=== PATIENT | female | born 1940 | race Caucasian/White ===

== ENCOUNTER → 2020-10-29 | Outpatient (CLI) | payer OTHER ==
[~2020-10-29] MED LIST: ALEN70 PO; AMLO5 PO; ANAS1 PO; ASPI81CH PO; Anastrozole1 GM; Aspir 8181 MG PO; GLUCOSAMINE &1 EACH PO; HYDCHL25 PO; L-Lysine500 M1 PO; LISI20 PO; MAGOXI400 PO; METF500 PO; Metformin HCl500 MG PO; NATURAL LUTEIN20 MG PO; PRAV20 PO; Pravastatin Sod40 MG PO; TUMERSAID TABL1 EACH PO; VITAMIN B122500 MCG PO; VITAMIN C500 M1 PO; Vitamin D2000 UNIT PO
== END | disposition home or self-care (01) ==
LOC: PLD 08:06 → LAB SHORT 08:06
DX: C44.622 Squamous cell carcinoma of skin of right upper limb, including shoulder (principal)
CPT/HCPCS: 88305

== ENCOUNTER → 2020-11-14 | Outpatient (CLI) | payer OTHER | LOC: PLD 11:27 → LAB SHORT 11:27 | DX: C44.622 Squamous cell carcinoma of skin of right upper limb, including shoulder (principal) | CPT/HCPCS: 88305 ==

== ENCOUNTER 2021-11-25 09:23 | Day surgery (SDC) | payer OTHER ==
[~2021-11-25 09:23] MED LIST changes: +C COMPLEX1000 M1 PO; +Calcium Acetat667 MG PO; +GLUCOSAMINE & CHONDR PO; -GLUCOSAMINE &1 EACH PO; +PROBIOTIC1 EA13 PO; -VITAMIN C500 M1 PO
--- NOTE | 2021-11-25 11:14 | NUR ---
Surgical site prepped with 2% Chlorhexidine cloth wipe. History, Chart, Medications and Allergies reviewed before start of procedure. Lungs clear T/O to Auscultation. Patient confirms NPO status and agrees with scheduled surgery. Patient reports completing Chlorhexadine shower X2 prior to admission to hospital. Patient up to Ambulate independently. Gait steady.
--- NOTE | 2021-11-25 19:19 | NUR ---
SHIFT SUMMARY PT ARRIVED TO UNIT SHORTLY AFTER 1500. SPINAL WORE OFF ENOUGH FOR PT TO WORK w/ THERAPY. EATING & DRINKING WELL.
--- NOTE | 2021-11-26 03:19 | NUR ---
SHIFT SUMMARY A/O X4. VSS. POD1- L TKA, ROSEMARY WRAP AND AQUACEL IN PLACE C/D/I. AMBULATING WITH FWW AND GB WITH SBA. VOIDING. TOLERATING PO INTAKE. MANAGEABLE PAIN LEVEL, TREATED PER EMAR. WILL CONTINUE TO MONITOR AND REPORT TO ONCOMING RN.
[2021-11-26 04:28] LABS: BASOPHILS PERCENT AUTO 0 % (0-2); EOSINOPHILS PERCENT AUTO 0 % (0-6); Hematocrit 29.6 % (33.0-51.0); Hemoglobin 9.9 g/dL (11.5-16.0); IMMATURE GRAN ABSOLUTE AUTO 0.05 K/mm3 (0.00-0.10); IMMATURE GRAN PERCENT AUTO 1 % (0-1); LYMPHOCYTES ABSOLUTE AUTO 0.82 K/mm3 (0.84-5.20); LYMPHOCYTES PERCENT AUTO 9 % (21-46); MONOCYTES ABSOLUTE AUTO 0.38 K/mm3 (0.16-1.47); MONOCYTES PERCENT AUTO 4 % (4-13); Mean Corpuscular HGB 29.4 pg (26.0-34.0); Mean Corpuscular HGB Conc 33.4 g/dL (31.5-36.5); Mean Corpuscular Volume 88 fL (80-100); Mean Platelet Volume 10.4 fL (9.1-12.4); NEUTROPHILS ABSOLUTE AUTO 7.69 K/mm3 (1.96-9.15); NEUTROPHILS PERCENT AUTO 86 % (41-73); Platelet Count 219 K/mm3 (150-400); RDW Coefficient Variation 12.5 % (11.7-14.2); Red Blood Cell Count 3.37 M/mm3 (3.80-5.20); White Blood Cell Count 8.94 K/mm3 (4.00-11.30)
[2021-11-26 04:44] LABS: Anion Gap 10 mmol/L (6-16); Blood Urea Nitrogen 31 mg/dL (8-24); Bun/Creatinine Ratio 42.5 (12.0-20.0); CO2, Blood 22 mmol/L (21-32); Calcium, Blood 8.8 mg/dL (8.5-10.1); Chloride, Blood 101 mmol/L (98-108); Creatinine, Blood 0.73 mg/dL (0.40-1.00); Glomerular Filtration Rate >60 (60-); Glucose, Blood 193 mg/dL (70-99); Potassium, Blood 4.4 mmol/L (3.5-5.5); Sodium, Blood 133 mmol/L (136-145)
[2021-11-26] MEDS ORDERED: Percocet 5-3251 EACH PO (11:30)
--- NOTE | 2021-11-26 12:03 | NUR ---
DISCHARGE PT HAS CLEARED THERAPY. PAIN WELL CONTROLLED. EATING, DRINKING, & VOIDING WELL. BUT DID HAVE ONE BOUT OF LARGE EMESIS. PT STATES THIS HAPPENS SOMETIMES & ISN'T CONCERNED. KIARRA CALLED IN TO [facility]. NICKY, SCRIPT, & POLAR PACK SENT w/ PT. ESCORTED OUT VIA W/C.
== END 2021-11-26 11:50 | disposition home or self-care (01) ==
LOC: ORSCMMR 09:23 → SURS 09:23 → ORSCMMR 09:24 → ORD 11:00 → ORSCMMR 11:00 → SURS 14:30 → ORSCMMR 11-26 11:50
PROVIDERS: Orthopaedic Surgery
PROC: 0SRD0JA Replacement of Left Knee Joint with Synthetic Substitute, Uncemented, Open Approach (ICD-10-PCS; principal; 2021-11-25 11:00)
PROC: 8E0Y0CZ Robotic Assisted Procedure of Lower Extremity, Open Approach (ICD-10-PCS; principal; 2021-11-25 11:00)
DX: M17.12 Unilateral primary osteoarthritis, left knee (principal); I10 Essential (primary) hypertension; E11.9 Type 2 diabetes mellitus without complications; Z79.84 Long term (current) use of oral hypoglycemic drugs; Z79.899 Other long term (current) drug therapy; Z79.82 Long term (current) use of aspirin; Z85.3 Personal history of malignant neoplasm of breast
CPT/HCPCS: 27447; S2900; 36415; 73560-LT; 80048; 82947; 85025; 97110; 97116; 97161; 97530; A9270; C1776; J0171; J0690; J0735; J1100; J1815; J1885; J2250; J2704; J2795; J3010; J7120

== ENCOUNTER → 2022-05-27 | Outpatient (CLI) | payer OTHER ==
[~2022-05-27] MED LIST changes: +Percocet 5-3251 EACH PO
[2022-05-28 13:37] LABS: Stool Occult Bld Immuno 1 Negative (NEGATIVE); Stool Occult Bld Immuno 2 Negative (NEGATIVE)
== END | disposition home or self-care (01) ==
LOC: LAB 01:35 → LAB SHORT 01:35
PROVIDERS: Internal Medicine Hematology & Oncology
DX: C50.919 Malignant neoplasm of unspecified site of unspecified female breast (principal); D64.9 Anemia, unspecified; Z17.0 Estrogen receptor positive status [ER+]
CPT/HCPCS: G0328

== ENCOUNTER → 2022-08-25 | Outpatient (CLI) | payer OTHER | END | disposition home or self-care (01) | LOC: PLD 08:04 → LAB 08:04 → LAB SHORT 08:04 | DX: L57.0 Actinic keratosis (principal) | CPT/HCPCS: 88305 ==

== ENCOUNTER 2023-03-02 01:38 | Day surgery (SDC) | payer OTHER ==
[2023-03-02 15:45] VITALS: BP 169/77
[2023-03-02 16:16] VITALS: BP 169/77
[2023-03-02 16:36] VITALS: BP 182/87
[2023-03-02 17:34] VITALS: BP 189/95
[2023-03-02] MEDS ORDERED: FAMO20 PO (17:58)
[2023-03-02] MEDS ORDERED: INSULANI SC (17:59)
[2023-03-02] MEDS ORDERED: ONDA4 PO (18:00)
[2023-03-02] MEDS ORDERED: FASLODEX250 MG/5 M IM (18:00)
[2023-03-02] MEDS ORDERED: KAPSPARGO SPRIN25 MG PO (18:01)
[2023-03-02 18:06] VITALS: BP 195/98
== END 2023-03-02 18:04 | disposition home or self-care (01) ==
LOC: ATC 01:38 → EDSTATUS 15:00 → ATC 15:00
DX: C50.812 Malignant neoplasm of overlapping sites of left female breast (principal); E11.9 Type 2 diabetes mellitus without complications; I10 Essential (primary) hypertension
CPT/HCPCS: 36415; 36430; 86850; 86900; 86901; 86920; J7050; P9016

== ENCOUNTER 2023-10-11 14:52 | Inpatient (IN) | payer OTHER ==
[~2023-10-11] VITALS: Ht 160 cm; Wt 67.2 kg
[~2023-10-11 14:52] MED LIST changes: +FAMO20 PO; +FASLODEX250 MG/5 M IM; +INSULANI SC; +KAPSPARGO SPRIN25 MG PO; +METF500C PO; -Metformin HCl500 MG PO; +ONDA4 PO
[2023-10-11 15:40] LABS: BASOPHILS ABSOLUTE AUTO 0.04 K/mm3 (0.00-0.23); BASOPHILS PERCENT AUTO 0 % (0-2); EOSINOPHILS ABSOLUTE AUTO 0.01 K/mm3 (0.00-0.68); EOSINOPHILS PERCENT AUTO 0 % (0-6); Hematocrit 31.7 % (33.0-51.0); Hemoglobin 10.3 g/dL (11.5-16.0); IMMATURE GRAN ABSOLUTE AUTO 0.09 K/mm3 (0.00-0.10); IMMATURE GRAN PERCENT AUTO 1 % (0-1); LYMPHOCYTES ABSOLUTE AUTO 1.67 K/mm3 (0.84-5.20); LYMPHOCYTES PERCENT AUTO 13 % (21-46); MONOCYTES ABSOLUTE AUTO 0.66 K/mm3 (0.16-1.47); MONOCYTES PERCENT AUTO 5 % (4-13); Mean Corpuscular HGB Conc 32.5 g/dL (31.5-36.5); Mean Corpuscular Volume 96 fL (80-100); Mean Platelet Volume 10.2 fL (9.1-12.4); NEUTROPHILS PERCENT AUTO 81 % (41-73); Platelet Count 157 K/mm3 (150-400); RDW Coefficient Variation 15.8 % (11.7-14.2); RDW Standard Deviation 54.5 fL (35.1-46.3); Red Blood Cell Count 3.32 M/mm3 (3.80-5.20); White Blood Cell Count 13.07 K/mm3 (4.00-11.30)
[2023-10-11 15:56] LABS: International Normalized Ratio 1.09; Prothrombin Time Results 11.4 Sec (9.7-11.5)
[2023-10-11] MEDS ORDERED: METO25ER PO (16:37)
[2023-10-11] MEDS ORDERED: METO5A PO (16:38)
[2023-10-11] MEDS ORDERED: ALBU90OI INH (16:39)
[2023-10-11 17:37] LABS: Albumin, Blood 2.4 g/dL (3.4-5.0); Albumin/Globulin Ratio 0.8 (0.8-1.8); Bilirubin, Total 0.5 mg/dL (0.1-1.0); Bun/Creatinine Ratio 17.3 (12.0-20.0); Calcium, Blood 7.7 mg/dL (8.5-10.1); Creatinine, Blood 2.6 mg/dL (0.40-1.00); Potassium, Blood 4.5 mmol/L (3.5-5.5); Total Protein, Blood 5.4 g/dL (6.4-8.2)
[2023-10-11 22:18] VITALS: BP 166/85
[2023-10-12 02:21] VITALS: BP 169/85
[2023-10-12 04:47] LABS: Source, Urine Clean Catch
[2023-10-12 04:51] LABS: BASOPHILS ABSOLUTE AUTO 0.03 K/mm3 (0.00-0.23); BASOPHILS PERCENT AUTO 0 % (0-2); EOSINOPHILS PERCENT AUTO 0 % (0-6); Hematocrit 25.6 % (33.0-51.0); Hemoglobin 8.4 g/dL (11.5-16.0); IMMATURE GRAN ABSOLUTE AUTO 0.06 K/mm3 (0.00-0.10); IMMATURE GRAN PERCENT AUTO 1 % (0-1); LYMPHOCYTES ABSOLUTE AUTO 1.38 K/mm3 (0.84-5.20); LYMPHOCYTES PERCENT AUTO 15 % (21-46); MONOCYTES ABSOLUTE AUTO 0.45 K/mm3 (0.16-1.47); MONOCYTES PERCENT AUTO 5 % (4-13); Mean Corpuscular HGB 31.2 pg (26.0-34.0); Mean Corpuscular HGB Conc 32.8 g/dL (31.5-36.5); Mean Corpuscular Volume 95 fL (80-100); Mean Platelet Volume 10.2 fL (9.1-12.4); NEUTROPHILS ABSOLUTE AUTO 7.09 K/mm3 (1.96-9.15); NEUTROPHILS PERCENT AUTO 79 % (41-73); Platelet Count 116 K/mm3 (150-400); RDW Coefficient Variation 15.7 % (11.7-14.2); RDW Standard Deviation 54.6 fL (35.1-46.3); Red Blood Cell Count 2.69 M/mm3 (3.80-5.20); White Blood Cell Count 9.01 K/mm3 (4.00-11.30)
[2023-10-12 05:01] LABS: Bilirubin, Urine Neg (Neg); Blood, Urine 5+ (Neg); Glucose Qualitative, Urine Neg (Neg); Ketones, Urine Neg (Neg); Leukocyte Esterase, Urine Neg (Neg); Nitrite, Urine Neg (Neg); Protein, Urine 3+ (Neg); Urobilinogen, Urine NORM (Normal)
[2023-10-12 05:10] LABS: Albumin, Blood 2.5 g/dL (3.4-5.0); Albumin/Globulin Ratio 1.1 (0.8-1.8); Bilirubin, Total 0.7 mg/dL (0.1-1.0); Bun/Creatinine Ratio 19.7 (12.0-20.0); Calcium, Blood 7.4 mg/dL (8.5-10.1); Creatinine, Blood 2.44 mg/dL (0.40-1.00); Globulin, Blood 2.3 g/dL (2.2-4.0); Potassium, Blood 4.6 mmol/L (3.5-5.5); Total Protein, Blood 4.8 g/dL (6.4-8.2)
--- NOTE | 2023-10-12 05:17 | NUR ---
REPORT RECEIVED FROM ER AND VERIFIED. VERY SWEET PT WITH NO DISTRESS AND MINIMAL C/O ABDOMINAL ASCITES, PT ALSO HAS SOME PAIN WITH COUGHING TO ABD. FAMILY AT BEDSIDE AND ALL VERY AWARE OF PT PROGNOSIS SINCE HAVING MULTIPLE BOUT WITH CANCER, PT CLAIMED SHES HAD A GOOD LIFE AND ISNT WORRIED. ADMIT DONE PT GOOD HISTORIAN AND MAKES NEEDS KNOWN. POOR IV ACCESS SO IV WRAPPED, ALBUMIN IS INFUSING, WILL CONT TO MONITOR. SON TO STAY THE NIGHT AND IS AT BEDSIDE
[2023-10-12 05:26] LABS: Appearance, Urine Clear (Clear); Color, Urine Pale Yellow (P-Yellow)
[2023-10-12 05:28] LABS: Bacteria Few /hpf; Squamous Epithelial Cells Few /hpf (Few); White Blood Cells, Urine 0-2 /hpf (0-5)
[2023-10-12 08:02] VITALS: BP 152/82
[2023-10-12 15:44] VITALS: BP 161/95
[2023-10-12 16:33] LABS: Albumin, Blood 2.5 g/dL (3.4-5.0); Anion Gap 9 mmol/L (6-16); Blood Urea Nitrogen 47 mg/dL (8-24); Bun/Creatinine Ratio 20.2 (12.0-20.0); CO2, Blood 19 mmol/L (21-32); Calcium, Blood 7.4 mg/dL (8.5-10.1); Chloride, Blood 109 mmol/L (98-108); Creatinine, Blood 2.33 mg/dL (0.40-1.00); Glomerular Filtration Rate 21 (60-); Glucose, Blood 141 mg/dL (70-99); Phosphorus, Blood 4.7 mg/dL (2.5-4.9); Potassium, Blood 4.3 mmol/L (3.5-5.5); Sodium, Blood 137 mmol/L (136-145)
[2023-10-12 16:58] LABS: Creatinine, Urine Random 32.7 mg/dL (27.00-270.00); Protein, Urine Random 95.1 mg/dL (0.0-11.9)
--- NOTE | 2023-10-12 19:04 | NUR ---
Pt alert and anxious about discomfort review of symptoms some mild burden of ventilation. mostly pressure on abdomen and some mild headaches off and on. Very poor appetite. pt wanting to hear what oncology reccomends. She is open to hospice if it is time. Advised her to speak with [facility] about palliative care if she coninues treatment. Daugher spoke outside the room dario past two weeks have been greater decline. will follow up with plan of care.
--- NOTE | 2023-10-12 19:42 | NUR ---
SUMMARY- PT A/O X4, INDEPENDANT TO THE BATHROOM. NEW NEPH CONSULT, DR FULLER HERE TO [id number]. ORDERS WRITTEN TO ACCESS PORT AND ADMIN IVF AND ALBUMIN TONIGHT. PT HAD LASIX 20MG IV ONCE TODAY, HAS BEEN VOIDING. SCANT EDEMA IN LE, LUNGS CTA. ABD DISTENDED. ADMIN FENT 25MCG ONCE THIS AFTERNOON, EFFECTIVE PAIN RELEIF. PT HAD NAUSEA THIS AFTERNOON, ADMIN ZOFRAN WITH RELIEF. THOUGHT SHE WOULD BENEFIT FROM STARTING REGLAN, CALLED DR ABRAHAM TO REQ RESTART OF THIS MED. TOLERATING FLUIDS AND HALF MEALS. MULT FAMILY MEMBERS IN TO VISIT PT, GOOD SUPPORT. PALLIATIVE ANA T. OFFERED SUPPORT AND HELPED OFFERING IDEAS IN PLANNING FROM HERE. REPORT TO DYLAN GUTIÉRREZ RN
[2023-10-12 19:43] VITALS: BP 174/93
[2023-10-13 04:52] VITALS: BP 149/75
[2023-10-13 05:17] LABS: BASOPHILS ABSOLUTE AUTO 0.03 K/mm3 (0.00-0.23); BASOPHILS PERCENT AUTO 1 % (0-2); EOSINOPHILS ABSOLUTE AUTO 0.01 K/mm3 (0.00-0.68); EOSINOPHILS PERCENT AUTO 0 % (0-6); Hematocrit 25.7 % (33.0-51.0); Hemoglobin 8.4 g/dL (11.5-16.0); IMMATURE GRAN ABSOLUTE AUTO 0.03 K/mm3 (0.00-0.10); IMMATURE GRAN PERCENT AUTO 1 % (0-1); LYMPHOCYTES ABSOLUTE AUTO 1.18 K/mm3 (0.84-5.20); LYMPHOCYTES PERCENT AUTO 19 % (21-46); MONOCYTES ABSOLUTE AUTO 0.44 K/mm3 (0.16-1.47); MONOCYTES PERCENT AUTO 7 % (4-13); Mean Corpuscular HGB 31.1 pg (26.0-34.0); Mean Corpuscular HGB Conc 32.7 g/dL (31.5-36.5); Mean Corpuscular Volume 95 fL (80-100); Mean Platelet Volume 10.3 fL (9.1-12.4); NEUTROPHILS ABSOLUTE AUTO 4.38 K/mm3 (1.96-9.15); NEUTROPHILS PERCENT AUTO 72 % (41-73); Platelet Count 125 K/mm3 (150-400); RDW Coefficient Variation 15.6 % (11.7-14.2); RDW Standard Deviation 54.1 fL (35.1-46.3); White Blood Cell Count 6.07 K/mm3 (4.00-11.30)
[2023-10-13 05:41] LABS: Albumin, Blood 2.6 g/dL (3.4-5.0); Albumin/Globulin Ratio 1.1 (0.8-1.8); Bilirubin, Total 0.7 mg/dL (0.1-1.0); Bun/Creatinine Ratio 22.6 (12.0-20.0); Calcium, Blood 7.3 mg/dL (8.5-10.1); Creatinine, Blood 2.12 mg/dL (0.40-1.00); Globulin, Blood 2.4 g/dL (2.2-4.0); Potassium, Blood 4.1 mmol/L (3.5-5.5)
--- NOTE | 2023-10-13 05:47 | NUR ---
REPORT RECEIVED VERIFIED PT DOING MUCH BETTER TODAY, HYPERTENSIVE AND COVERED WITH PRN MEDICATION. MEDIPORT WAS ACCESSED TO ALLOW FOR BETTER INFUSION AND BLOOD DRAWS. PAIN MEDICATION GIVEN FOR DISCOMFORT AND PT WAS ALLOWED TO SLEEP PER REQUEST. PT SLEPT VERY WELL SHOWED NO DISTRESS AND HAS BEEN INDEPENDANT IN ROOM. LAB DRAWN FROM [facility]
[2023-10-13 07:38] VITALS: BP 174/88
[2023-10-13 13:35] LABS: Anion Gap 9 mmol/L (6-16); Blood Urea Nitrogen 45 mg/dL (8-24); Bun/Creatinine Ratio 24.1 (12.0-20.0); CO2, Blood 20 mmol/L (21-32); Calcium, Blood 7.6 mg/dL (8.5-10.1); Chloride, Blood 112 mmol/L (98-108); Creatinine, Blood 1.87 mg/dL (0.40-1.00); Glomerular Filtration Rate 27 (60-); Glucose, Blood 198 mg/dL (70-99); Phosphorus, Blood 4.4 mg/dL (2.5-4.9); Potassium, Blood 3.9 mmol/L (3.5-5.5); Sodium, Blood 141 mmol/L (136-145)
--- NOTE | 2023-10-13 17:13 | NUR ---
SHIFT SUMMARY PATIENT ALERT AND INTERACTIVE. PAITENT ABLE TO VERBALIZE NEEDS AND AMBULATES INDEPENDENT IN THE ROOM. PATIENT PLANS TO DISCHARGE HOME TOMORROW WITH HOSPICE. PATIENT HAS CANCER WITH METS. PATIENT MEDICATED X1 WITH ROXINAL FOR PAIN WITH GOOD RELIEF. PATIENT ABLE TO REST AFTER MEDICATED. FAMILY IN THE ROOM AND PARTICIPATED TALKING WITH HOSPICE. PATIENT CONTINUES TO GET SOB WITH EXCERTION. APPETITE POOR. ABDOMIN DISTENDED BUT SOFT.
--- NOTE | 2023-10-13 17:19 | NUR ---
Spoke with Dr Chen and discussed case. Pt's cancer appears to have progressed and hospice was discussed. Pt and family agreeable. Pt and family may benefit from continued conversation. Pt resting in bed upon arrival. Pt's daughter Rachel at bedside. Pt and daughter confirm being in agreement with hospice services. Pt reports being familiar with hospice as her spouse was on hospice approximately 10 years ago. Offered therapeutic listening and answered questions regarding hospice serives. Discussed hospice agencies to choose from with Pt and daughter requesting [facility]. Pt does appear mildly dyspneic as evidenced by work of breathing. Discussed trialing Roxanol to assist with dyspnea. Pt is in agreement. Assisted with completing POLST. Placed order for Roxanol 5mg SL every 4 hours PRN for pain or airhunger per V/O from Dr Chen. Spoke with July in Clinic Office Assistant office. She will send referral to [facility]. Pt will need hospital bed, pump and pad, oxygen, and BSC. Plan: Obtain copies of POLST for medical records, and hospice upon physician signature. Palliative Care will remain available
[2023-10-13 19:43] VITALS: BP 163/85
[2023-10-13 21:26] VITALS: BP 149/79
[2023-10-14 03:05] VITALS: BP 136/62
[2023-10-14 04:59] LABS: BASOPHILS ABSOLUTE AUTO 0.01 K/mm3 (0.00-0.23); BASOPHILS PERCENT AUTO 0 % (0-2); EOSINOPHILS ABSOLUTE AUTO 0.01 K/mm3 (0.00-0.68); EOSINOPHILS PERCENT AUTO 0 % (0-6); Hematocrit 23.8 % (33.0-51.0); Hemoglobin 7.7 g/dL (11.5-16.0); IMMATURE GRAN ABSOLUTE AUTO 0.02 K/mm3 (0.00-0.10); IMMATURE GRAN PERCENT AUTO 0 % (0-1); LYMPHOCYTES ABSOLUTE AUTO 1.07 K/mm3 (0.84-5.20); LYMPHOCYTES PERCENT AUTO 23 % (21-46); MONOCYTES ABSOLUTE AUTO 0.43 K/mm3 (0.16-1.47); MONOCYTES PERCENT AUTO 9 % (4-13); Mean Corpuscular HGB 30.8 pg (26.0-34.0); Mean Corpuscular HGB Conc 32.4 g/dL (31.5-36.5); Mean Corpuscular Volume 95 fL (80-100); NEUTROPHILS ABSOLUTE AUTO 3.17 K/mm3 (1.96-9.15); NEUTROPHILS PERCENT AUTO 67 % (41-73); Platelet Count 106 K/mm3 (150-400); RDW Coefficient Variation 15.8 % (11.7-14.2); RDW Standard Deviation 54.8 fL (35.1-46.3); White Blood Cell Count 4.71 K/mm3 (4.00-11.30)
--- NOTE | 2023-10-14 05:15 | NUR ---
SHIFT SUMMARY NOC PT A/O X 4. PLEASANT AND COOPERATIVE WITH CARE. PT RECEIVED FINAL DOSES OF ALBUMIN, AWAITING AM LABS FOR IMPROVEMENT. PT HAS MEDIPORT IN PLACE. PROVIDER ORDERED 1L D5W/BICARB/KCL X 1, OTHERWISE INFUSION OF D5W/LR IS INFUSING @ 100 ML/HR. PT HAD C/O OF ABD PAIN X 1 AND MEDICATED WITH ROXANOL. PT EXPECTED TO DISCHARGE HOME TODAY WITH HOME HOSPICE. PT REPORTS BEING AT [facility] WITH EXPECTED OUTCOME. PT IS CURRENTLY RESTING WITH BED IN LOWEST POSITION, AND CALL LIGHT WITHIN REACH.
[2023-10-14 05:26] LABS: Albumin, Blood 2.8 g/dL (3.4-5.0); Albumin/Globulin Ratio 1.4 (0.8-1.8); Bilirubin, Total 0.9 mg/dL (0.1-1.0); Bun/Creatinine Ratio 23.9 (12.0-20.0); Calcium, Blood 7.1 mg/dL (8.5-10.1); Creatinine, Blood 1.8 mg/dL (0.40-1.00); Potassium, Blood 3.9 mmol/L (3.5-5.5); Total Protein, Blood 4.8 g/dL (6.4-8.2); Uric Acid, Blood 12.1 mg/dL (2.6-6.0)
[2023-10-14 07:37] VITALS: BP 143/75
[2023-10-14] MEDS ORDERED: AMLO10 PO (13:41)
[2023-10-14] MEDS ORDERED: HYDRA25 PO (13:41)
[2023-10-14] MEDS ORDERED: Vitamin D1000 UNI1 PO (13:43)
[2023-10-14] MEDS ORDERED: MORP20L SL (13:45)
--- NOTE | 2023-10-14 17:14 | NUR ---
SHIFT SUMMARY AND DISCHARGE PATIENT DISCHARGED HOME ON HOSPICE. DISCHARGE INSTRUCTIONS REVIEWED WITH PATIENT AND DAUGHTER. TONY DIAZ'D PER PROTOCOL. AND COVERED WITH BANDAID. PATIENT INDEPENDENT IN ROOM. CONTINUES TO HAVE NAUSEA AND VOMITING ESPECIALLY AFTER MOVEMENT. ABD CONTINUES TO BE DISTENDED BUT SOFT. PATIENT SHORT OF BREATH WITH EXCERTION. BELONGINGS SENT HOME WITH PATIENT. PATIENT INSTRUCTED TO CONTACT HOSPICE ONCE ARRIVES TO THE HOME
== END 2023-10-14 15:18 | disposition hospice, home (50) | DRG 181 ==
LOC: ER 14:52 → ERHOLD 20:41 → MEDS 20:41 → ENPENDDIS 10-14 13:48 → MEDS 10-14 15:18
PROVIDERS: Family Medicine; Hospitalist; Physician Assistant; ADMIT Internal Medicine
DX: C34.90 Malignant neoplasm of unspecified part of unspecified bronchus or lung (principal); C78.7 Secondary malignant neoplasm of liver and intrahepatic bile duct; E46 Unspecified protein-calorie malnutrition; N17.9 Acute kidney failure, unspecified; R18.8 Other ascites; Z66 Do not resuscitate; Z51.5 Encounter for palliative care; E88.09 Other disorders of plasma-protein metabolism, not elsewhere classified; E86.9 Volume depletion, unspecified; E78.5 Hyperlipidemia, unspecified; N18.31 Chronic kidney disease, stage 3a; I12.9 Hypertensive chronic kidney disease with stage 1 through stage 4 chronic kidney disease, or unspecified chronic kidney disease; E79.0 Hyperuricemia without signs of inflammatory arthritis and tophaceous disease; E11.22 Type 2 diabetes mellitus with diabetic chronic kidney disease; D63.1 Anemia in chronic kidney disease; Z85.3 Personal history of malignant neoplasm of breast; Z79.51 Long term (current) use of inhaled steroids; Z79.899 Other long term (current) drug therapy; Z88.8 Allergy status to other drugs, medicaments and biological substances; Z60.2 Problems related to living alone; Z98.890 Other specified postprocedural states; Z90.12 Acquired absence of left breast and nipple; Z90.721 Acquired absence of ovaries, unilateral; Z96.652 Presence of left artificial knee joint; Z68.25 Body mass index [BMI] 25.0-25.9, adult
CPT/HCPCS: 36415; 71046; 74176; 80053; 80069; 81001; 82570; 82947; 83880; 84156; 84300; 84550; 85025; 85610; 93005; 93010; 94640; 94664; 94760; 96372; 97161; 99285-25; A9270; J0360; J1644; J1940; J2405; J3010; J3480; J7030; J7070; J7121; P9047